=== PATIENT | male | born 1950 | race Caucasian/White ===

== ENCOUNTER 2018-08-31 14:35 | Outpatient (CLI) | payer MEDICARE ==
--- NOTE | 2018-08-31 15:59 | ULT ---
ULTRASOUND RETROPERITONEUM COMPLETE: (RENAL) 08/31/2018 HISTORY: A 68-year-old male with chronic kidney disease. FINDINGS: The right kidney measures 10 x 5.5 x 4.5 cm. The left kidney measures 14 x 7 x 8.5 cm. Bilateral renal parenchyma is diffusely thin, approximately 1.3 cm in thickness each, and has heterog eneously mildly increased echogenicity, consistent with chronic medical renal disease. No hydronephr osis bilaterally. Somewhat suboptimal visualization of renal parenchyma. The supervisor general has measured a 2 x 1.5 x 1 cm focus at the parenchyma of the right renal mid pole. I t is uncertain whether or not this is an actual renal mass or just part of the renal parenchyma that appears to have echogenicity that is slightly more hypoechoic, relative to the rest of the renal pare nchyma due to technical reasons. The patient has a pacemaker, which would be a contraindication for MRI. The urinary bladder volume is 145 mL prior to voiding. The post-void volume is approximately 5 mL. There is a large, 4.5 x 4.5 x 5.5 cm, hypoechoic, solid mass occupying a significant portion of the l umen of the bladder. This is probably the superior extension of an enlarged prostate gland (based on evaluation of CT of 07/18/2017). IMPRESSION: 1. Evidence for chronic kidney disease. 2. No hydronephrosis. 3. Very enlarged prostate gland. 4. Questionable small, 2 cm right renal mid pole cortical lesion. Since iodinated IV contrast would be contraindicated (unless the patient is already on chronic hemodi alysis), and the patient has a pacemaker, serial follow-up renal ultrasounds are recommended, beginni vance in six months. SANA Hoover POS: FELIPE
== END 2018-08-31 14:36 | disposition home or self-care (01) ==
LOC: ULT 14:35
PROVIDERS: ATTEND Internal Medicine Nephrology
DX: N18.3 Chronic kidney disease, stage 3 (moderate) (principal); N40.0 Benign prostatic hyperplasia without lower urinary tract symptoms
CPT/HCPCS: 76770